=== PATIENT | female | born 1940 | race Native Hawaiian/Other Pacific Islander ===

== ENCOUNTER 2019-07-05 13:47 | Emergency (ER) | payer OTHER ==
[~2019-07-05] VITALS: Ht 165.1 cm; Wt 63.5 kg
[2019-07-05 14:23] LABS: POTASSIUM 4.8 mmol/L (3.6-5.2); SODIUM 135 mmol/L (136-145)
[2019-07-05 14:30] LABS: PLATELET COUNT 248 K/uL (152-353)
[2019-07-05 14:39] LABS: PARTIAL THROMBOPLASTIN TIME 21.7 SECONDS (24.5-33.6)
[2019-07-05 18:58] VITALS: BP 158/71; TEMP 98
== END 2019-07-05 18:59 | disposition home or self-care (01) ==
LOC: ED 13:47
PROVIDERS: Family Medicine
DX: E86.0 Dehydration (principal); E87.1 Hypo-osmolality and hyponatremia; R55 Syncope and collapse; N39.0 Urinary tract infection, site not specified
CPT/HCPCS: 36415; 80053; 81000; 83880; 84484; 85027; 85610; 85730; 87086; 87088; 93005; 96360; 96365; 99284; J0696